=== PATIENT | female | born 1980 | race Caucasian/White ===

== ENCOUNTER 2017-01-23 07:06 | Emergency (ER) | payer OTHER ==
[~2017-01-23] VITALS: Ht 152.4 cm; Wt 58.8 kg
[~2017-01-23 07:06] MED LIST: ATARAX,VISTARIL25 MG PO; ERYTHROMYC1 APPLICAT LEFT EYE; FLEXERIL10 MG PO; FLEXERIL5 MG PO; INDOCIN50 MG PO; MOBIC7.5 MG PO; MOTRIN IB200 MG PO; NOHOMEMEDS; SEROQUEL50 MG PO; VENTOLIN HFA18 GM IH; ZITHROMAX250 MG PO
[2017-01-23 07:35] LABS: ADD MIUA? YES; BILIRUBIN NEGATIVE; BLOOD LARGE; COLOR YELLOW ((YELLOW)); GLUCOSE (STRIP) NEGATIVE; KETONES NEGATIVE; LEUKOCYTES LARGE; NITRITE NEGATIVE; PROTEIN (STRIP) 100; SPECIFIC GRAVITY 1.016 (1.000-1.030); UROBILINOGEN 0.2 MG/DL (0.2-1.0)
[2017-01-23] MEDS ORDERED: CIPRO500 MG PO (07:39)
[2017-01-23] MEDS ORDERED: DIFLUCAN100 MG PO (07:42)
[2017-01-23 07:45] LABS: BACTERIA 2+ /HPF; CALCIUM OXALATE CRYSTALS 3+ /HPF; EPITHELIAL CELLS 1+ /HPF; MUCUS NONE SEEN /LPF; RED BLOOD CELLS TNTC /HPF (0-5); UCUL ADDED? YES; WHITE BLOOD CELLS TNTC /HPF (0-5)
[2017-01-23 07:48] VITALS: BP 108/80
== END 2017-01-23 07:49 | disposition home or self-care (01) ==
LOC: EME 07:06
PROVIDERS: Emergency Medicine
DX: N30.00 Acute cystitis without hematuria (principal); F17.200 Nicotine dependence, unspecified, uncomplicated
CPT/HCPCS: 81003; 87086; 99281; 99284

== ENCOUNTER 2017-07-07 04:36 | Emergency (ER) | payer OTHER ==
[~2017-07-07] VITALS: Ht 152.4 cm; Wt 56.0 kg
[~2017-07-07 04:36] MED LIST changes: +CIPRO500 MG PO; +DIFLUCAN100 MG PO
[2017-07-07 04:45] VITALS: BP 125/85
[2017-07-07 05:28] LABS: APPEARANCE CLEAR ((CLEAR)); BILIRUBIN NEGATIVE; BLOOD SMALL; COLOR STRAW ((YELLOW)); GLUCOSE (STRIP) NEGATIVE; KETONES NEGATIVE; LEUKOCYTES NEGATIVE; NITRITE NEGATIVE; PROTEIN (STRIP) NEGATIVE; SPECIFIC GRAVITY 1.006 (1.000-1.030); UROBILINOGEN 0.2 MG/DL (0.2-1.0)
[2017-07-07 05:35] LABS: BACTERIA RARE /HPF; EPITHELIAL CELLS RARE /HPF; MUCUS TRACE /LPF; RED BLOOD CELLS 0-5 /HPF (0-5); UCUL ADDED? NO; WHITE BLOOD CELLS 0-5 /HPF (0-5)
== END 2017-07-07 05:49 | disposition left against medical advice (07) ==
LOC: EME 04:36
PROVIDERS: Emergency Medicine
DX: N89.8 Other specified noninflammatory disorders of vagina (principal); M54.5 Low back pain; F17.200 Nicotine dependence, unspecified, uncomplicated; Z53.20 Procedure and treatment not carried out because of patient's decision for unspecified reasons
CPT/HCPCS: 81003; 87210; 99281; 99284

== ENCOUNTER 2017-11-11 15:41 | Emergency (ER) | payer OTHER ==
[~2017-11-11] VITALS: Ht 152.4 cm; Wt 50.7 kg
[2017-11-11 16:37] LABS: HEMATOCRIT 37.3 % (36.0-46.0); HEMOGLOBIN 12.9 G/DL (11.9-15.5); MCH 33.3 PG (29.0-34.0); MCHC 34.6 G/DL (30.0-36.0); MCV 96.4 FL (83-99); PLATELET COUNT 223 K/uL (156-360); RBC DIS.WIDTH-CV 12.7 % (11.8-14.6); RBC DIS.WIDTH-SD 44.8 % (39-53); RED BLOOD COUNT 3.87 M/uL (3.80-5.20); WHITE BLOOD COUNT 9.1 K/uL (4.1-10.2)
[2017-11-11 16:54] LABS: ALBUMIN 3.7 g/dL (3.2-4.8); CHLORIDE 110 mEq/L (99-109); SODIUM 141 mEq/L (136-147)
[2017-11-11 16:56] LABS: GLUCOSE 107 mg/dL (70-99); TOTAL PROTEIN 6.4 g/dL (6.4-8.3)
[2017-11-11 16:58] LABS: TOTAL BILIRUBIN 0.4 mg/dL (0.0-1.0)
[2017-11-11 17:00] LABS: ALKALINE PHOSPHATASE 57 IU/L (3-129); GFR ESTIMATE (CALCULATED) > 59 mL/min/
[2017-11-11 17:01] LABS: AST (GOT) 18 IU/L (2-34); UREA NITROGEN (BUN) 11 mg/dL (9-23)
[2017-11-11 17:02] LABS: DIRECT BILIRUBIN 0.1 mg/dL (0.0-0.3)
[2017-11-11 17:03] LABS: ALT (GPT) 14 IU/L (3-49)
[2017-11-11] MEDS ORDERED: MOTRIN800 MG PO (17:12)
[2017-11-11] MEDS ORDERED: FLEXERIL10 MG PO (17:12)
[2017-11-11 17:24] VITALS: BP 100/77
== END 2017-11-11 17:25 | disposition home or self-care (01) ==
LOC: EME 15:41
PROVIDERS: Physician Assistant
DX: M54.5 Low back pain (principal); M54.16 Radiculopathy, lumbar region; J45.909 Unspecified asthma, uncomplicated; F31.9 Bipolar disorder, unspecified; F32.9 Major depressive disorder, single episode, unspecified; F41.9 Anxiety disorder, unspecified; F90.9 Attention-deficit hyperactivity disorder, unspecified type; F17.200 Nicotine dependence, unspecified, uncomplicated; Z91.041 Radiographic dye allergy status
CPT/HCPCS: 80048; 80076; 85027; 99281; 99284